=== PATIENT | female | born 1960 | race African-American/Black ===

== ENCOUNTER 2016-10-25 17:10 | Emergency (ER) | payer MEDICAID, OTHER ==
[~2016-10-25] VITALS: Ht 162.6 cm; Wt 64.0 kg
[2016-10-25 17:21] VITALS: BP 160/90
[2016-10-25] MEDS ORDERED: AMOX500T2 PO (17:26)
== END 2016-10-25 23:00 | disposition left against medical advice (07) ==
LOC: ER 17:10
DX: Z53.21 Procedure and treatment not carried out due to patient leaving prior to being seen by health care provider (principal)